=== PATIENT | male | born 1980 | race Caucasian/White ===

== ENCOUNTER 2020-07-13 12:19 | Outpatient (REF) | payer OTHER, SELFPAY | END 2020-07-13 12:20 | disposition home or self-care (01) | LOC: HO.LAB 12:19 | PROVIDERS: Visit Provider Internal Medicine | DX: Z20.828 Contact with and (suspected) exposure to other viral communicable diseases (principal) | CPT/HCPCS: 87635 ==

== ENCOUNTER 2020-08-03 09:30 | Outpatient (RCR) | payer OTHER, SELFPAY | END 2020-08-24 23:55 | disposition home or self-care (01) | LOC: HO.PAOS 09:30 | PROVIDERS: Visit Provider Psychologist | DX: F43.22 Adjustment disorder with anxiety (principal) | CPT/HCPCS: 90791; 90834 ==

== ENCOUNTER 2020-08-27 01:20 | Emergency (ER) | payer OTHER, SELFPAY ==
[2020-08-27 01:27] VITALS: BP 147/95; PULSE 116; RESP 18; TEMP 37; O2SAT 98; BMI 30.8
--- NOTE | 2020-08-27 01:28 | CT_ITS ---
EXAMINATION: CT HEAD WITHOUT CONTRAST CT CERVICAL SPINE WITHOUT CONTRAST CLINICAL INFORMATION: Fall COMPARISON: None. TECHNIQUE: Multidetector CT imaging of the head and cervical spine was performed without the use of intravenous contrast. Multiplanar reformats are reviewed. This CT examination was performed using dose optimization techniques as appropriate, variously including the following: *Automated exposure control *Adjustment of mA and/or kV according to patient size (this includes techniques or standardized protocols for targeted exams where dose is matched to indication/reason for exam; i.e. extremities or head) *Use of iterative reconstruction technique DLP: 1447 mGy-cm. FINDINGS: There is no evidence of acute intracranial hemorrhage or territorial infarction. No abnormal mass effect or midline shift is seen. Gonzalez to white matter differentiation is well preserved. No extra-axial fluid collections are identified. The ventricles are normal in size. There is no abnormal attenuation within the brain parenchyma. The osseous structures and soft tissues are normal. The mastoid air cells and visualized portions of the paranasal sinuses are well-aerated. Atlantooccipital alignment is maintained. The vertebral bodies and posterior elements align normally. No acute fracture or subluxation. Vertebral body heights and intervertebral disc spaces are preserved. No significant degenerative changes are appreciated. No central canal or foraminal narrowing. The cervicomedullary junction and spinal cord are grossly unremarkable. The paraspinal soft tissues are unremarkable. The imaged lung apices are clear CT/CT cervical spine wo con IMPRESSION: No acute intracranial pathology. No cervical spine fracture or malalignment.
--- NOTE | 2020-08-27 01:29 | ED.FALL ---
HPI - Fall General Chief Complaint: Fall Stated Complaint: ETOH W/FALL DOWN 2-3STEPS,+ LOC,NOSE LAC,+COLLAR Time Seen by Provider: 08/27/20 01:23 Source: family and EMS Mode of arrival: EMS History of Present Illness HPI Narrative: This is a 39-year-old male who is brought in by EMS after they were called by his family when he was found to have apparently fallen down the last 2 steps in the basement which are carpeted and was found face down and unclear whether not he was unconscious due to the fall or the level of alcohol intoxication. Patient asking what happened but denies any pain to C-spine or head. Related Data Home Medications Medication Instructions Recorded Confirmed No Known Home Meds 08/27/20 08/27/20 Allergies Allergy/AdvReac Type Severity Reaction Status Date / Time No Known Allergies Allergy Verified 08/27/20 01:52 Review of Systems Review of Systems: Pertinent positives and negatives as stated in HPI. [facility] Past Medical History Source: nursing notes reviewed Medical History No known health problems Surgical History No history of previous surgery Social History Social History Household Members: Spouse and Children Smoking Status: Never smoker Use of substances other than those prescribed or required for medical reasons: No Advance Directives: No Advance Directives Information Provided: No Physical Exam Vital Signs: Vital Signs: Last Vital Signs Temp 98.6 F 08/27/20 01:27 Pulse 108 H 08/27/20 02:00 Resp 15 08/27/20 02:00 BP 131/94 H 08/27/20 02:00 Pulse Ox 98 08/27/20 02:00 Body Mass Index 30.8 VITAL SIGNS: Reviewed. GENERAL: Well developed, well nourished, in no acute distress. HEAD: Normocephalic/atraumatic, EYES: PERRLA, EOMI intact without pain, no nystagmus/pallor/icterus noted EARS: Ext canals without abnormality, TMs non-bulging and non-erythematous NOSE: blood present in bilateral nares with noted deviation of the nose to the left, no septal hematoma OROPHARYNX: no oral lesions noted, posterior pharynx clear and non-erythematous without noted tonsillar enlargement/erythema/exudates, no tongue laceration, superficial laceration to the right lower lip NECK: Supple, no adenopathy LUNGS: Normal breath sounds. No adventitious sounds or accessory muscle use. SpO2<98> CARDIOVASCULAR: Regular rate and rhythm without noted murmurs, no JVD or lower extremity edema. ABDOMEN: Soft, non-tender, non-distended with bowel sounds. No rigidity. No guarding. No palpable masses or hernias noted MUSCULOSKELETAL: No tenderness, deformities, or effusions noted on gross inspection. EXTREMITIES: No cyanosis, clubbing or edema. SKIN: Inspection of the skin reveals no rashes, ulcerations, jaundice, pallor, or petechiae. NEUROLOGIC: Alert and oriented x 4. Strength and sensation to light touch were grossly intact x 4. Course Course Course Narrative: This is a 39-year-old male with history of clinical presentation consistent with significant alcohol intoxication and will rule out intracranial or cervical spine injuries and then allow to be discharged to home. On review of all investigations there are no acute intracranial or cervical findings and the C-collar was removed without evidence of midline tenderness. Discharge Plan Discharge Clinical Impression: Abrasion Alcohol intoxication Qualifiers: Complication of substance-induced condition: uncomplicated Qualified Code(s): F10.920 - Alcohol use, unspecified with intoxication, uncomplicated Patient Disposition: Home, Self-Care Instructions: Alcohol Intoxication (ED), Abrasion (ED) Additional Instructions: 1. Please increase fluid hydration, especially with water. 2. Use a combination of vaod-[id number]-peqqxos Tylenol and/or ibuprofen as needed for any aches or pains. 3. Please see your primary care provider on Friday for further evaluation of your nose. The patient and/or family acknowledge understanding of results (as applicable), diagnosis, treatment plan, need for follow up, and symptoms that should prompt a return to the emergency room. Prescriptions: No Action No Known Home Meds RF: 0 Referrals: Carlos Chin MD [Primary Care Provider] - 2 days (Re-evaluation nose deformity)
[2020-08-27 02:00] VITALS: BP 131/94; PULSE 108; RESP 15; O2SAT 98
--- NOTE | 2020-08-27 02:57 | PC.NURSE ---
Patient's c-spine is clear of any fracture as well as head ct. Patient has been cleared for discharge but needs a sober ride home.
--- NOTE | 2020-08-27 03:47 | PC.NURSE ---
This caption writer attempted to call patient's x 2 and left messages that patient needed to be picked up because he was ready for discharge. No return phone call from patient.
[2020-08-27 04:00] VITALS: RESP 15
== END 2020-08-27 05:37 | disposition home or self-care (01) ==
PROVIDERS: Emergency Provider Student in an Organized Health Care Education/Training Program; PCP Internal Medicine
DX: S00.91XA Abrasion of unspecified part of head, initial encounter (principal); F10.129 Alcohol abuse with intoxication, unspecified; G44.309 Post-traumatic headache, unspecified, not intractable; Y90.9 Presence of alcohol in blood, level not specified; W10.9XXA Fall (on) (from) unspecified stairs and steps, initial encounter; Y93.9 Activity, unspecified; Y92.009 Unspecified place in unspecified non-institutional (private) residence as the place of occurrence of the external cause; Y99.9 Unspecified external cause status; Z71.41 Alcohol abuse counseling and surveillance of alcoholic
CPT/HCPCS: 70450; 72125; 99284